=== PATIENT | male | born 1955 | race African-American/Black ===

== ENCOUNTER 2019-05-10 15:36 | Inpatient (IN) | payer MEDICAID, OTHER ==
[~2019-05-10] VITALS: Ht 185.4 cm; Wt 131.2 kg
[2019-05-10 17:07] LABS: CHLORIDE 110 mEq/L (98-107)
[2019-05-10 17:10] LABS: BASOPHILS % 1.2 % (0.0-2.0); EOSINOPHILS % 1.7 % (0.0-5.0); HEMATOCRIT. 43.4 % (42.0-52.0); INR 1.1; LYMPHOCYTES % 36.6 % (20.0-50.0); MEAN CORPUSCULAR HEMOGLOBIN 33.7 pg (28.0-32.0); MEAN CORPUSCULAR VOLUME 97.8 fL (80.0-94.0); MONOCYTES % 9.3 % (2.0-8.0); NEUTROPHILS % 51.2 % (40.0-76.0); PARTIAL THROMBOPLASTIN TIME 20.1 sec (23.4-31.0); PROTHROMBIN TIME 11.4 sec (9.6-11.0); RED BLOOD CELL COUNT 4.44 mill/uL (4.7-6.1); RED CELL DISTRIBUTION WIDTH 13.2 % (11.6-14.6)
[2019-05-10 17:45] LABS: PLATELET 157 x1000/uL (130-400)
[2019-05-10] MEDS ORDERED: ACETAMINOPHEN 325MG TABLET PO PRN (19:45)
[2019-05-10] MEDS ORDERED: CLONIDINE 0.1MG TABLET PO PRN (19:45)
[2019-05-10] MEDS ORDERED: DOCUSATE SODIUM 100MG CAPSULE PO PRN (19:45)
[2019-05-10] MEDS ORDERED: ONDANSETRON HCL 4MG/2ML INJ IV PRN (19:45)
[2019-05-10] MEDS ORDERED: MORPHINE SULFATE 2 MG/ML CPJ (NOT FOR IM USE) IV PRN (19:45)
[2019-05-10] MEDS ORDERED: HYDROCODONE/ACETAMINOPHEN 5/325MG TABLET PO PRN (19:45)
[2019-05-10] MEDS ORDERED: ENOXAPARIN 40MG/0.4ML SYR SUBCUT SCH (19:45)
[2019-05-10 20:00] VITALS: BP 139/75
[2019-05-10 20:15] VITALS: BP 139/75
[2019-05-10] MEDS ORDERED: DEXTROSE 50% WATER 50ML SYRINGE IV PRN (21:45)
[2019-05-10] MEDS: AMLODIPINE 10MG TABLET PO SCH (21:48)
[2019-05-10] MEDS: METOPROLOL TARTRATE 25MG TABLET PO SCH (21:48)
[2019-05-10] MEDS ORDERED: INFLUENZA VIRUS VACCINE(AFLURIA) 0.5ML SYR IM ONE (22:45)
[2019-05-11] VITALS: BP 104/49
[2019-05-11 00:56] LABS: CREATINE KINASE 170 IU/L (39-308)
[2019-05-11 00:57] LABS: CREATINE KINASE MB FRACTION 2.6 ng/mL (0.5-3.6)
[2019-05-11 04:00] VITALS: BP 128/65
[2019-05-11] MEDS ORDERED: INFLUENZA VIRUS VACCINE(AFLURIA) 0.5ML SYR IM ONE (06:00)
[2019-05-11 06:09] LABS: BASOPHILS % 0.6 % (0.0-2.0); EOSINOPHILS % 2.3 % (0.0-5.0); HEMATOCRIT. 39.4 % (42.0-52.0); HEMOGLOBIN. 13.6 g/dL (14.0-18.0); MEAN CORPUSCULAR HEMOGLOBIN 33.8 pg (28.0-32.0); MEAN CORPUSCULAR VOLUME 98.1 fL (80.0-94.0); MEAN PLATELET VOLUME 8.7 fl (7.4-10.4); MONOCYTES % 10.8 % (2.0-8.0); NEUTROPHILS % 45.3 % (40.0-76.0); PLATELET 149 x1000/uL (130-400); RED BLOOD CELL COUNT 4.02 mill/uL (4.7-6.1); RED CELL DISTRIBUTION WIDTH 13.1 % (11.6-14.6)
[2019-05-11] MEDS: BLOOD SUGAR DIAGNOSTIC STRIP TEST SCH ×4 (06:21→21:00)
[2019-05-11 06:43] LABS: CHLORIDE 109 mEq/L (98-107)
[2019-05-11 06:52] LABS: CREATINE KINASE 144 IU/L (39-308); T4 FREE 0.94 ng/dL (0.76-1.46)
[2019-05-11 06:55] LABS: CREATINE KINASE MB FRACTION 2.5 ng/mL (0.5-3.6)
[2019-05-11] MEDS: INSULIN LISPRO 100 UNITS/ML SUBCUT SCH ×4 (07:50→21:00)
[2019-05-11 08:00] VITALS: BP 138/76
[2019-05-11] MEDS: ENOXAPARIN 30MG/0.3ML SYR SUBCUT SCH ×2 (09:29→22:34)
[2019-05-11] MEDS: AMLODIPINE 10MG TABLET PO SCH (09:30)
[2019-05-11] MEDS: ASPIRIN 81MG EC TABLET PO SCH (09:31)
[2019-05-11] MEDS: METOPROLOL TARTRATE 25MG TABLET PO SCH ×2 (09:31→21:00)
[2019-05-11] MEDS: FUROSEMIDE 40MG TABLET PO SCH ×2 (09:31→17:50)
[2019-05-11] MEDS: POTASSIUM CHLORIDE 20MEQ TABLET SR PO SCH (09:31)
[2019-05-11 12:00] VITALS: BP 114/66
[2019-05-11 16:00] VITALS: BP 124/88
[2019-05-11 20:11] VITALS: BP 129/78
[2019-05-12] VITALS: BP 132/66
[2019-05-12 04:00] VITALS: BP 129/69
[2019-05-12] MEDS: FUROSEMIDE 40MG TABLET PO SCH ×2 (06:38→18:38)
[2019-05-12 07:01] LABS: CHLORIDE 106 mEq/L (98-107)
[2019-05-12 07:13] LABS: BASOPHILS % 0.9 % (0.0-2.0); HEMATOCRIT. 42.2 % (42.0-52.0); HEMOGLOBIN. 14.6 g/dL (14.0-18.0); LYMPHOCYTES % 47.2 % (20.0-50.0); MEAN CORPUSCULAR VOLUME 98.2 fL (80.0-94.0); MEAN PLATELET VOLUME 8.6 fl (7.4-10.4); MONOCYTES % 11.3 % (2.0-8.0); NEUTROPHILS % 37.6 % (40.0-76.0); PLATELET 161 x1000/uL (130-400); RED CELL DISTRIBUTION WIDTH 12.9 % (11.6-14.6)
[2019-05-12] MEDS: BLOOD SUGAR DIAGNOSTIC STRIP TEST SCH ×4 (07:48→21:01)
[2019-05-12 08:00] VITALS: BP 126/69
[2019-05-12] MEDS: AMLODIPINE 10MG TABLET PO SCH (08:32)
[2019-05-12] MEDS: METOPROLOL TARTRATE 25MG TABLET PO SCH (08:33)
[2019-05-12] MEDS: ASPIRIN 81MG EC TABLET PO SCH (08:33)
[2019-05-12] MEDS: ENOXAPARIN 30MG/0.3ML SYR SUBCUT SCH ×2 (08:34→21:01)
[2019-05-12] MEDS: POTASSIUM CHLORIDE 20MEQ TABLET SR PO SCH (08:34)
[2019-05-12] MEDS: INSULIN LISPRO 100 UNITS/ML SUBCUT SCH ×4 (08:42→21:00)
[2019-05-12 09:31] LABS: *AMPHETAMINES SCREEN URINE NEGATIVE (NEGATIVE); *BARBITURATES SCREEN URINE NEGATIVE (NEGATIVE); *BENZODIAZEPINES SCREEN URINE NEGATIVE (NEGATIVE); *COCAINE SCREEN URINE NEGATIVE (NEGATIVE); METHADONE URINE SCREEN NEGATIVE (NEGATIVE)
[2019-05-12 09:32] LABS: CANNABINOID URINE SCREEN NEGATIVE (NEGATIVE); OPIATES URINE SCREEN NEGATIVE (NEGATIVE); PHENCYCLIDINE URINE SCREEN NEGATIVE (NEGATIVE)
[2019-05-12] MEDS ORDERED: ATOR40TA70 MT (19:16)
[2019-05-12] MEDS ORDERED: HYDR-4134 PO (19:16)
[2019-05-12] MEDS ORDERED: CARV12.545 MT (19:16)
[2019-05-12] MEDS ORDERED: ASPI-1158 PO (19:16)
[2019-05-12] MEDS ORDERED: LISI-604 PO (19:16)
[2019-05-12] MEDS ORDERED: FURO40TA5 PO (19:16)
[2019-05-12] MEDS ORDERED: GUAI-741 PO (19:16)
[2019-05-12] MEDS ORDERED: AMIO100T4 PO (19:16)
[2019-05-12] MEDS ORDERED: DOXY150T9 PO (19:16)
[2019-05-12] MEDS ORDERED: NITR0.4T49 SL (19:16)
[2019-05-12] MEDS ORDERED: POTA8TAB8 PO (19:16)
[2019-05-12] MEDS ORDERED: METF-414 PO (19:16)
[2019-05-12] MEDS ORDERED: ISOS30TA6 PO (19:16)
[2019-05-12 20:00] VITALS: BP 118/64
[2019-05-12] MEDS: CARVEDILOL 12.5MG TABLET PO SCH (21:01)
[2019-05-13] VITALS: BP 106/53
[2019-05-13 04:00] VITALS: BP 128/61
[2019-05-13] MEDS: FUROSEMIDE 40MG TABLET PO SCH (06:46)
[2019-05-13] MEDS: BLOOD SUGAR DIAGNOSTIC STRIP TEST SCH ×2 (06:46→12:17)
[2019-05-13 07:06] LABS: BASOPHILS % 1.2 % (0.0-2.0); EOSINOPHILS % 3.6 % (0.0-5.0); HEMATOCRIT. 43.1 % (42.0-52.0); HEMOGLOBIN. 15.1 g/dL (14.0-18.0); LYMPHOCYTES % 49.7 % (20.0-50.0); MEAN CORPUSCULAR HEMOGLOBIN 34.1 pg (28.0-32.0); MEAN CORPUSCULAR VOLUME 97.2 fL (80.0-94.0); MEAN PLATELET VOLUME 8.6 fl (7.4-10.4); MONOCYTES % 12.3 % (2.0-8.0); NEUTROPHILS % 33.2 % (40.0-76.0); PLATELET 161 x1000/uL (130-400); RED BLOOD CELL COUNT 4.43 mill/uL (4.7-6.1)
[2019-05-13 07:18] LABS: CHLORIDE 104 mEq/L (98-107)
[2019-05-13 08:00] VITALS: BP 117/64
[2019-05-13] MEDS: AMLODIPINE 10MG TABLET PO SCH (08:10)
[2019-05-13] MEDS: POTASSIUM CHLORIDE 20MEQ TABLET SR PO SCH (08:10)
[2019-05-13] MEDS: ASPIRIN 81MG EC TABLET PO SCH (08:11)
[2019-05-13] MEDS: CARVEDILOL 12.5MG TABLET PO SCH (08:11)
[2019-05-13] MEDS: ENOXAPARIN 30MG/0.3ML SYR SUBCUT SCH (08:12)
[2019-05-13] MEDS: INSULIN LISPRO 100 UNITS/ML SUBCUT SCH ×2 (08:16→12:38)
[2019-05-13 12:00] VITALS: BP 115/65
[2019-05-13 13:06] VITALS: BP 115/65
== END 2019-05-13 14:02 | disposition home or self-care (01) | DRG 206 ==
LOC: ER 15:36 → 6WST 18:47 → EDBEDREQ 18:49 → ENRESERV 19:39
PROVIDERS: ADMIT Hospitalist; ATTEND Hospitalist
PROC: 4B02XTZ Measurement of Cardiac Defibrillator, External Approach (ICD-10-PCS; principal; 2019-05-12)
DX: T82.199A Other mechanical complication of unspecified cardiac device, initial encounter (principal); I47.2 Ventricular tachycardia; I42.0 Dilated cardiomyopathy; I11.0 Hypertensive heart disease with heart failure; I50.9 Heart failure, unspecified; E11.9 Type 2 diabetes mellitus without complications; E66.09 Other obesity due to excess calories; I49.3 Ventricular premature depolarization; Z82.49 Family history of ischemic heart disease and other diseases of the circulatory system; Z95.810 Presence of automatic (implantable) cardiac defibrillator; Z87.891 Personal history of nicotine dependence; Z79.899 Other long term (current) drug therapy; Z68.38 Body mass index [BMI] 38.0-38.9, adult
CPT/HCPCS: 36415; 71045; 80048; 80053; 80305; 82550; 82553; 82962; 83735; 83880; 84439; 84443; 84484; 85025; 90686; 93005; 93306; 93970; 99285; J1650; J1815; J2270

== ENCOUNTER 2019-11-18 18:45 | Emergency (ER) | payer OTHER ==
[~2019-11-18] VITALS: Ht 190.5 cm; Wt 127.0 kg
[~2019-11-18 18:45] MED LIST: AMIO100T4 PO; ASPI-1158 PO; ATOR40TA70 MT; CARV12.545 MT; FURO40TA5 PO; HYDR-4134 PO; IBUP-2029 MT; ISOS30TA6 PO; LEVO500T2 PO; LISI-604 PO; METF-414 PO; NITR0.4T49 SL; POTA8TAB8 PO
[2019-11-18] MEDS ORDERED: ASPIRIN 81MG TABLET PO ONE (22:15)
[2019-11-18] MEDS ORDERED: NITROGLYCERIN 0.4MG TABLET SL SL PRN (22:15)
[2019-11-18 22:43] LABS: *BENZODIAZEPINES SCREEN URINE NEGATIVE (NEGATIVE)
[2019-11-18 22:44] LABS: *AMPHETAMINES SCREEN URINE NEGATIVE (NEGATIVE); *BARBITURATES SCREEN URINE NEGATIVE (NEGATIVE); *COCAINE SCREEN URINE NEGATIVE (NEGATIVE); CANNABINOID URINE SCREEN NEGATIVE (NEGATIVE); METHADONE URINE SCREEN NEGATIVE (NEGATIVE); OPIATES URINE SCREEN NEGATIVE (NEGATIVE); PHENCYCLIDINE URINE SCREEN NEGATIVE (NEGATIVE)
[2019-11-18 23:03] LABS: BASOPHILS % 0.5 % (0.0-2.0); EOSINOPHILS % 2.1 % (0.0-5.0); HEMATOCRIT. 41.3 % (42.0-52.0); HEMOGLOBIN. 14.4 g/dL (14.0-18.0); LYMPHOCYTES % 36.8 % (20.0-50.0); MEAN CORPUSCULAR HEMOGLOBIN 34.2 pg (28.0-32.0); MEAN CORPUSCULAR VOLUME 98.1 fL (80.0-94.0); MEAN PLATELET VOLUME 8.3 fl (7.4-10.4); MONOCYTES % 9.6 % (2.0-8.0); PLATELET 155 x1000/uL (130-400); RED BLOOD CELL COUNT 4.21 mill/uL (4.7-6.1); RED CELL DISTRIBUTION WIDTH 13.6 % (11.6-14.6)
[2019-11-18 23:06] LABS: CHLORIDE 106 mEq/L (98-107)
[2019-11-18 23:10] LABS: ETHANOL BLOOD < 10 mg/dL
[2019-11-18 23:12] LABS: PARTIAL THROMBOPLASTIN TIME 23.6 sec (23.4-31.0); PROTHROMBIN TIME 10.7 sec (9.6-11.0)
[2019-11-19 01:21] VITALS: BP 128/64
== END 2019-11-19 03:00 | disposition home or self-care (01) ==
LOC: ER 18:45
DX: T82.199A Other mechanical complication of unspecified cardiac device, initial encounter (principal); R07.89 Other chest pain; E11.9 Type 2 diabetes mellitus without complications; I10 Essential (primary) hypertension; Z79.82 Long term (current) use of aspirin; Z79.84 Long term (current) use of oral hypoglycemic drugs; Y83.8 Other surgical procedures as the cause of abnormal reaction of the patient, or of later complication, without mention of misadventure at the time of the procedure; Y92.018 Other place in single-family (private) house as the place of occurrence of the external cause
CPT/HCPCS: 36415; 71045; 80053; 80305; 80320; 83880; 84484; 85025; 85610; 85730; 93005; 99285; Z7610; G0480